=== PATIENT | female | born 1990 | race Hispanic/Latino ===

== ENCOUNTER 2021-03-19 08:35 | Day surgery (SDC) | payer BC ==
[2021-03-18 14:36] LABS: BASOPHILS % (AUTO) 0.6 % (0.0-5.0); EOSINOPHILS % (AUTO) 0.7 % (0.0-8.0); HEMATOCRIT 41.6 % (36-48); LYMPHOCYTES % (AUTO) 29.5 % (21.0-51.0); MEAN CORPUSCULAR HEMOGLOBIN 28.6 pg (27.0-33.0); MEAN CORPUSCULAR HGB CONC 33.2 g/dL (32.0-36.0); MEAN CORPUSCULAR VOLUME 86.1 fL (79-99); MONOCYTES % (AUTO) 6.2 % (3.0-13.0); NEUTROPHILS % (AUTO) 62.6 % (40.0-77.0); PLATELET COUNT (AUTO) 360 K/uL (130-400); RED BLOOD CELL COUNT(AUTO) 4.83 MIL/uL (4.00-5.50); RED CELL DISTRIBUTION WIDTH 12.5 % (11.0-15.5); WHITE BLOOD COUNT (AUTO) 8.3 K/uL (4.8-10.8)
[2021-03-18 15:06] VITALS: BP 119/67
[~2021-03-19] VITALS: Ht 147.3 cm; Wt 59.1 kg
[2021-03-19] VITALS (15 sets, daily range): BP systolic 96–131; BP diastolic 45–72
[2021-03-19] MEDS: CEFAZOLIN SODIUM 1 GM VIAL IVP SCH ×2 (06:00→11:15)
[~2021-03-19 08:35] MED LIST: CALDOLOR 800MG+NS 250ML 250 ML IV SCH; CHOL500045 PO; DAILY FIBER PO; FEXO180T94 PO; LACTATED RINGERS 1000ML 1,000 ML IV SCH; MULT-660 PO
[2021-03-19] MEDS ORDERED: ONDANSETRON 4MG INJ ONE (10:38)
[2021-03-19] MEDS ORDERED: LIDOCAINE PF 100MG/5ML (2%) SYRINGE 5ML ONE (10:38)
[2021-03-19] MEDS ORDERED: FENTANYL CITRATE PF 50 MCG/1 ML 2ML VIAL ONE ×2 (10:38→11:59)
[2021-03-19] MEDS ORDERED: MIDAZOLAM HCL 1 MG/ML 2ML VIAL ONE (10:39)
[2021-03-19] MEDS ORDERED: ROCURONIUM 10MG/1ML SYR 10 MG/ML ML ONE (10:39)
[2021-03-19] MEDS ORDERED: PROPOFOL 10 MG/ML 20ML VIAL IV ONE (10:39)
[2021-03-19] MEDS ORDERED: MEPERIDINE-PF 25 MG/ML SYG ONE (10:40)
[2021-03-19] MEDS ORDERED: BUPIVACAINE/PF 0.25% 30ML VIAL IJ ONE (11:21)
[2021-03-19] MEDS ORDERED: CEFAZOLIN SODIUM 1 GM VIAL ONE ×2 (11:34→11:35)
[2021-03-19] MEDS ORDERED: GLYCOPYRROLATE 1 MG/5 ML SYRINGE ONE (12:00)
[2021-03-19] MEDS ORDERED: NEOSTIGMINE 5MG/5ML SYR IV ONE (12:00)
== END 2021-03-19 13:50 | disposition home or self-care (01) ==
LOC: DAH 08:35
PROVIDERS: ATTEND Obstetrics & Gynecology
DX: D27.1 Benign neoplasm of left ovary (principal); Z20.822 Contact with and (suspected) exposure to COVID-19; N73.6 Female pelvic peritoneal adhesions (postinfective); F17.200 Nicotine dependence, unspecified, uncomplicated; Z80.0 Family history of malignant neoplasm of digestive organs; Z82.49 Family history of ischemic heart disease and other diseases of the circulatory system; Z83.3 Family history of diabetes mellitus; Z83.42 Family history of familial hypercholesterolemia; Z80.41 Family history of malignant neoplasm of ovary; Z80.3 Family history of malignant neoplasm of breast; Z72.89 Other problems related to lifestyle; Z79.899 Other long term (current) drug therapy
CPT/HCPCS: 36415; 58662; 84703; 85025; 86850; 86900; 86901; 87635; A4215; A4221; A4222; A4223; A4344; A4351; A4649; A4663; C1769 ×2; C9803; G0168; J0690 ×3; J1741; J2001; J2175; J2250; J2405; J2704; J2710; J3010 ×2; J3490 ×2; J7030; J7120